=== PATIENT | female | born 1945 | race Caucasian/White ===

== ENCOUNTER 2017-01-24 12:58 | Day surgery (SDC) | payer MEDICARE, OTHER ==
[~2017-01-24] VITALS: Ht 160 cm; Wt 68.5 kg
[~2017-01-24 12:58] MED LIST: ARIMIDEX1 MG PO; BUPROPION HCL100 M1 PO
[2017-01-24] MEDS ORDERED: CARVEDILOL3.125 MG PO (13:20)
[2017-01-24] MEDS ORDERED: AMLODIPINE BESYL5 MG PO (13:20)
[2017-01-24] MEDS ORDERED: TYLENOL325 MG PO (13:21)
--- NOTE | 2017-01-24 14:30 | NUR ---
01/24/17 1430 Mari Gary 1423 - PT ARRIVED TO PACU, MAINTAINING OWN AIRWAY. RESPONDING TO STIMULI.
--- NOTE | 2017-01-26 22:37 | OR ---
[facility] [address], [place] [address] Signed DATE OF SERVICE: 01/24/2017 PREOPERATIVE DIAGNOSIS: History of tubular adenomas, 2013. POSTOPERATIVE DIAGNOSES: Polyp at 30 cm, excised. Internal hemorrhoidal changes. PROCEDURE: Total colonoscopy to cecum with cold morcellation polypectomy x1. SURGEON: Renaldo Dodd MD. ANESTHESIA: Intravenous sedation with fentanyl 100 mcg, Versed 6 mg. INDICATION: This 71-year-old white woman underwent colonoscopy by me in 2013 at which time, she was found to have 2 tubular adenomas, 1 in the cecum and 1 in the sigmoid. She is here for surveillance colonoscopy. She is a patient of Dr. Daniels and also Dr. Penaloza. She understands the risks of bleeding, infection, and perforation related to colonoscopy and wished to proceed. FINDINGS: The prep was adequate. Irrigation was required. Complete colonoscopy was undertaken of the cecum. There was 1 small polyp of the sigmoid at approximately 30 cm, which was excised with cold morcellation technique. The remaining colon was normal. She did have internal hemorrhoids. PROCEDURE: The patient was brought to endoscopy suite, placed in lateral decubitus position. Given intravenous sedation to the point of slurred speech and nystagmus. Digital rectal examination was normal. Olympus video colonoscope was passed in the rectum and manipulated throughout the colon, ultimately intubating the cecum itself. Irrigation was required as there was some mucoid type stool from time to time. Ultimately, the cecum was intubated, the ileocecal valve and appendiceal orifice identified and found to be normal. The scope was withdrawn from that point. Careful examination upon withdrawal of scope showed no sign of abnormality. There was ultimately noted to be a small polyp at 30 cm from the anal verge. Narrow-band imaging confirmed a serpiginous mucosa consistent with adenoma. This was complete ly excised with cold morcellation technique. Further withdrawal of scope, and a retroflex view showed no other abnormality other than Electronically Signed By: RENALDO DODD MD 01/26/17 2237 PATIENT NAME: YASSINE HODGESN ALO OPERATIVE REPORT DATE OF : 45 PHYSICIAN: RENALDO DODD MD REPORT #: [id number] REPORT IS CONFIDENTIAL AND NOT TO BE RELEASED WITHOUT AUTHORIZATION [facility] [address] [place] [id number] Signed internal hemorrhoids. The scope was removed. The patient was taken to recovery room in good condition. CONCLUDING DIAGNOSES: Polyp at 30 cm (excised). Internal hemorrhoids. PLAN: Repeat colonoscopy in 5 years, sooner if symptoms. To return to the ongoing care of Dr. Daniels and Dr. Penaloza. MD CLAU Bradford/Modl /[id number] Electronically Signed By: RENALDO DODD MD 01/26/177 PATIENT NAME: TRACIELAURENAb PRAJAPATI OPERATIVE REPORT DATE OF : 45 PHYSICIAN: RENALDO DODD MD REPORT #: [id number] REPORT IS CONFIDENTIAL AND NOT TO BE RELEASED WITHOUT AUTHORIZATION
== END 2017-01-24 15:19 | disposition home or self-care (01) ==
LOC: OPS 12:58 → DS 14:00 → OPS 14:00
PROVIDERS: Surgery
PROC: 0DBN8ZX Excision of Sigmoid Colon, Via Natural or Artificial Opening Endoscopic, Diagnostic (ICD-10-PCS; principal; 2017-01-24 14:00)
DX: D12.5 Benign neoplasm of sigmoid colon (principal); K64.8 Other hemorrhoids; I10 Essential (primary) hypertension; N28.9 Disorder of kidney and ureter, unspecified; K21.9 Gastro-esophageal reflux disease without esophagitis; Z85.3 Personal history of malignant neoplasm of breast; Z85.820 Personal history of malignant melanoma of skin; F32.9 Major depressive disorder, single episode, unspecified; Z90.49 Acquired absence of other specified parts of digestive tract; Z98.890 Other specified postprocedural states
CPT/HCPCS: 88305; 99152; 99153; J2250; J3010; J7120

== ENCOUNTER 2020-10-16 13:01 | Day surgery (SDC) | payer MEDICARE, OTHER ==
[~2020-10-16] VITALS: Ht 160 cm; Wt 69.0 kg
[~2020-10-16 13:01] MED LIST changes: +ACID REDUCER20 MG PO; +AMLODIPINE BESYL5 MG PO; +BALANCED B-100100 MG PO; +CALCIUM CITRAT1 EA15 PO; +CARVEDILOL3.125 MG PO; +DAILY VITAMIN1 EAC3 PO; +TYLENOL325 MG PO
--- NOTE | 2020-10-16 14:28 | NUR ---
10/16/20 1428 ARMEN WOODRUFF 1425-PATIENT ARRIVED TO PACU ON 2L O2. BREATHING EVEN AND UNLABORED. ABDOMEN SOFT. PATIENT DROWSY, RESPONDS TO TACTILE STIMULI.
--- NOTE | 2020-10-19 12:23 | OR ---
[facility] [address], [place] [address] Signed DATE OF OPERATION: 10/16/2020 SURGEON: Renaldo Dodd MD PREOPERATIVE DIAGNOSIS: Persistent diarrhea since September 2020. POSTOPERATIVE DIAGNOSES: 1. Scattered diverticula. 2. Small polyp at 40 cm (excised, otherwise normal). PROCEDURE: Total colonoscopy to the cecum with biopsy of cecum and cold morcellation polypectomy x1. ANESTHESIA: Intravenous sedation, fentanyl 100 mcg and Versed 5 mg. INDICATION: This 74-year-old white woman is well known to me from the past. She is a patient of Dr. Holloway at [facility] in [place], [place]. She is referred for consideration of colonoscopy on the basis of persistent diarrhea of an unknown etiology. She had a tubular adenoma resected by me in January of 2017. She has no rectal bleeding. She has no family history of colon cancer that she is aware of. She is admitted at this time to undergo colonoscopy to assess for etiology related to her diarrhea, understanding well the risk of bleeding, infection, and perforation. Of special note, she has had no known exposure to COVID-19 and has been vaccinated x2, last vaccination on October 01. She takes no medications likely to account for diarrhea either, specifically not on metformin. FINDINGS: The prep was good. Complete colonoscopy was undertaken to the right colon with visualization of the cecum, though intubation was not forthcoming despite efforts to do so. She had scattered diverticula throughout the colon. There was a small polyp at 40 cm which was excised with cold morcellation technique. There were no other findings of concern. DESCRIPTION OF PROCEDURE: The patient was brought to the endoscopy suite and placed in lateral decubitus position, given intravenous sedation to the point of slurred speech and nystagmus. Digital rectal Electronically Signed By: RENALDO DODD MD 10/19/20 1223 PATIENT NAME: LAUREN HODGES OPERATIVE REPORT DATE OF : 45 REPORT #: [id number] PHYSICIAN: RENALDO DODD MD PCP: AMANDA HOLLOWAY MD REPORT IS CONFIDENTIAL AND NOT TO BE RELEASED WITHOUT AUTHORIZATION [facility] [address], [place] [address] Signed examination was normal. An Olympus video colonoscope was passed in the rectum and manipulated throughout the colon noting scattered diverticula. The prep was good. Scope was ultimately advanced beyond the hepatic flexure to the right colon. Good visualization of the right colon was noted with further advancement of scope was undertaken but complete visualization or intubation per se of the cecum was not forthcoming despite efforts to do so. Abdominal wall palpation revealed the scope was in indeed the cecal area. Biopsies were taken of the deepest portion of the cecum to assess for occult colitis. The scope was then withdrawn. Examination throughout showed no sign of abnormality until approximately 40 cm from the anal verge, where a small adenomatous appearing polyp was noted, this was excised with cold morcellation technique without problem. Further withdrawal of scope showed only a few scattered diverticula. The rectum was normal. Retroflexed view was normal as well. The scope was removed. The patient was taken to the recovery room in good condition. CONCLUDING DIAGNOSES: No lesion to account for diarrhea. Biopsies taken of cecum to assess for occult colitis. Small polyp noted, probably adenomatous. PLAN: We will for the time being recommend a fiber supplement, Metamucil or Citrucel one scoop daily. If her diarrhea persists despite this and there are no findings particularly of lymphocytic colitis or other occult on cecal biopsy, we will provide additional support for control of her problem. She as always return to the ongoing care of her primary provider, Dr. Holloway in [place], [place] as well. MD CLAU Bradford/RIAZL /[id number] cc: Dr. Bayron Holloway Copies: Electronically Signed By: RENALDO DODD MD 10/19/20 1223 PATIENT NAME: LAUREN HODGES OPERATIVE REPORT DATE OF : 45 REPORT #: [id number] PHYSICIAN: RENALDO DODD MD PCP: AMANDA HOLLOWAY MD REPORT IS CONFIDENTIAL AND NOT TO BE RELEASED WITHOUT AUTHORIZATION [facility] [address], [place] [address] Signed ~ Electronically Signed By: RENALDO DODD MD 10/19/20 1223 PATIENT NAME: YASSINE HODGESN ALO OPERATIVE REPORT DATE OF : 45 REPORT #: [id number] PHYSICIAN: RENALDO DODD MD PCP: AMANDA HOLLOWAY MD REPORT IS CONFIDENTIAL AND NOT TO BE RELEASED WITHOUT AUTHORIZATION
--- NOTE | 2020-10-21 16:51 | PATH ---
[facility] [address] [place], [place] [address] Signed SPECIMEN(S): A CECUM COLON BIOPSY SPECIMEN(S): B DESCENDING/LEFT COLON POLYP SPECIMEN SOURCE: A. CECUM COLON BIOPSY B. DESCENDING/LEFT COLON POLYP CLINICAL HISTORY: Colonoscopy with possible biopsies. Chronic diarrhea. MICROSCOPIC DESCRIPTION: Histologic sections of all submitted blocks are examined by light microscopy. These findings, together with the gross examination, support the pathologic diagnosis. FINAL PATHOLOGIC DIAGNOSIS: A. Colon, cecum, biopsy: - Colonic mucosa with no histopathologic abnormality. - Negative for active, chronic, or microscopic colitis. - Negative for dysplasia or malignancy. B. Colon, descending/left, polyp, polypectomy: - Tubular adenoma. - Negative for high-grade dysplasia or malignancy. NAL:cml:C2NR GROSS DESCRIPTION: Two specimens are received in two containers, labeled "Lauren Hodges." A. The specimen, labeled "Lauren Hodges, #1," and designated on the requisition "cecum biopsy," is received in formalin and consists of two elias soft tissue fragments that measure 0.3 and 0.3 cm in greatest dimension. The specimen is entirely submitted in cassette (A1). B. The specimen, labeled "Lauren Hodges, #2," and designated on the requisition "descending/left polypectomy," is received in formalin and consists of two elias soft tissue fragments that measure 0.3 and 0.4 cm in greatest dimension. The specimen is entirely submitted in cassette (B1). FB (under the direct supervision of a pathologist) The Gross Description was prepared using a voice recognition system. The report was reviewed for accuracy; however, sound-alike word errors, addition and/or deletions may occur. If there is any question about this report, please contact Client Services. PATIENT NAME: LAUREN HODGES PATHOLOGY DATE OF : 45 REPORT #: [id number] PHYSICIAN: KAYDEN PATHOLOGY PCP: AMANDA HOLLOWAY MD REPORT IS CONFIDENTIAL AND NOT TO BE RELEASED WITHOUT AUTHORIZATION [facility] [address] [place] [address] Signed PERFORMING LABORATORY: The technical component was performed by [[place] [address] ([employer]: Katey Santiago MD; CLIA# [id number]). [facility], [address] [address] (CLIA# [id number]). Diagnostician: Aparna Brizuela MD Pathologist Electronically Signed 10/21/2020 Copies: ~ PATIENT NAME: LAUREN HODGES PATHOLOGY DATE OF : 45 REPORT #: [id number] PHYSICIAN: KAYDEN PATHOLOGY PCP: AMANDA HOLLOWAY MD REPORT IS CONFIDENTIAL AND NOT TO BE RELEASED WITHOUT AUTHORIZATION
== END 2020-10-16 15:40 | disposition home or self-care (01) ==
LOC: DS 13:01 → OPS 13:01 → DS 14:15 → OPS 15:40
PROVIDERS: ATTEND Surgery
PROC: 0DBH8ZZ Excision of Cecum, Via Natural or Artificial Opening Endoscopic (ICD-10-PCS; principal; 2020-10-16 14:15)
DX: K52.9 Noninfective gastroenteritis and colitis, unspecified (principal); D12.4 Benign neoplasm of descending colon; K57.30 Diverticulosis of large intestine without perforation or abscess without bleeding; K21.9 Gastro-esophageal reflux disease without esophagitis; I10 Essential (primary) hypertension; F32.9 Major depressive disorder, single episode, unspecified; Z85.820 Personal history of malignant melanoma of skin; Z86.010 Personal history of colon polyps; Z90.49 Acquired absence of other specified parts of digestive tract; Z85.3 Personal history of malignant neoplasm of breast; Z86.018 Personal history of other benign neoplasm
CPT/HCPCS: 99153; G0500; J2250; J3010; J7121